=== PATIENT | female | born 1975 | race Caucasian/White ===

== ENCOUNTER → 2018-08-21 16:57 | Outpatient (CLI) | payer OTHER, SELFPAY ==
--- NOTE | 2018-08-21 | DI.RAD.S_ITS ---
PROCEDURE: XR CHEST 2V INDICATIONS: Infectious mononucleosis, unspecified with other complicatio TECHNIQUE: 2 views of the chest were acquired. COMPARISON: None. FINDINGS: Surgical changes and devices: None. Lungs and pleura: Lungs are clear. No pleural effusions or pneumothorax. Mediastinum: Mediastinal contours are normal. Heart size is normal. Bones and chest wall: No suspicious bony abnormalities. Soft tissues appear unremarkable. IMPRESSION: Normal for age. No adenopathy seen, no pneumonia found. Dictated by: Billy Coleman M.D. on 08/22/2018 at 9:34 Approved by: Billy Coleman M.D. on 08/22/2018 at 9:34
== END ==
PROVIDERS: PCP Family Medicine; Visit Provider Family Medicine
DX: B27.99 Infectious mononucleosis, unspecified with other complication (principal)
CPT/HCPCS: 71046

== ENCOUNTER → 2019-06-25 09:45 | Outpatient (CLI) | payer OTHER, SELFPAY ==
--- NOTE | 2019-06-25 | DI.RAD.S_ITS ---
PROCEDURE: XR LUMBAR SPINE 2-3V INDICATIONS: LOW BACK PAIN TECHNIQUE: 3 views of the lumbar spine were acquired. COMPARISON: [facility], , L-SPINE 2-3 VIEWS, 08/14/2017, 8:50. FINDINGS: Bones: Multilevel degenerative endplate sclerosis and spurring. Diffuse facet arthropathy. Straightening of the normal lordotic curvature. Diffuse mild narrowing of the lumbar disc spaces. Soft tissues: Overlying bowel gas pattern is normal. No suspicious soft tissue calcifications. IMPRESSION: Mild diffuse lumbar spondylosis and facet arthropathy grossly unchanged since 08/14/17 Dictated by: Raymond Prajapati M.D. on 06/25/2019 at 14:52 Approved by: Raymond Prajapati M.D. on 06/25/2019 at 14:54
--- NOTE | 2019-06-25 | DI.RAD.S_ITS ---
PROCEDURE: XR HIP W PEL IF DONE LT 2V INDICATIONS: LOW BACK PAIN TECHNIQUE: 2 views of the hip were acquired. COMPARISON: [facility], , PELVIS 1 OR 2 VIEWS, 08/14/2017, 8:50. FINDINGS: Bones: No fractures or dislocations. No suspicious bony lesions. The visualized pelvic ring appears intact. Chronic appearing ossicle seen at the greater trochanter. The hip joint space is grossly preserved Soft tissues: No suspicious soft tissue calcifications or masses. IMPRESSION: Mild heterotopic ossification seen projecting at the superior aspect of the greater trochanter suggestive of chronic hip abductor tendinopathy Dictated by: Raymond Prajapati M.D. on 06/25/2019 at 14:50 Approved by: Raymond Prajapati M.D. on 06/25/2019 at 14:52
== END ==
PROVIDERS: PCP Family Medicine; Visit Provider Family Medicine
DX: M54.5 Low back pain (principal); M47.816 Spondylosis without myelopathy or radiculopathy, lumbar region
CPT/HCPCS: 72100; 73502